=== PATIENT | female | born 1995 | race Caucasian/White ===

== ENCOUNTER 2025-08-14 08:07 | Outpatient (CLI) | payer BC, SELFPAY ==
--- NOTE | 2025-08-14 08:15 | CRLHL7_ITS ---
For Patients: As a result of the Cures Act, medical imaging exams and procedure reports are released immediately into your electronic medical record. You may view this report before your referring provider. If you have questions, please contact your health care provider. OB ULTRASOUND INDICATION: Dating and viability. TECHNIQUE: Real time grayscale imaging of the fetus was performed. Transvaginal. Transvaginal imaging performed to better demonstrate the endometrium and ovaries. LMP: 06/15/2025. BRUNO by LMP: 03/22/2026. GA: 8 w, 4 d. Previous US: No. CRL: 2.1 cm. 8 w 5 d. BRUNO: 03/21/2026. FHR: 173 BPM. Gestational sac: 4.2 cm. Appears within normal limits. Yolk sac: 5.1 mm. Appears within normal limits. Right ovary: Within normal limits. 3.4 x 1.8 x 1.7 cm. Left ovary: Within normal limits. 4.6 x 1.7 x 2.6 cm. CL. IMPRESSION: Single living intrauterine measures 8 weeks 5 days with sonographic due date 03/21/2026. Noman Harding M.D. Diagnostic Radiologist [email or web address]/Dictated by: Noman Harding MD @ 08/14/2025 10:44:00 AM (Electronically Signed)
[2025-08-14 12:04] LABS: TSH With Reflex to FT4* 19.200 uIU/mL (0.270-4.200)
[2025-08-14 12:44] LABS: Free T4 Free Thyroxine* 0.88 ng/dL (0.70-1.85)
== END 2025-08-14 08:08 | disposition home or self-care (01) ==
LOC: US 08:08
PROVIDERS: PCP Student in an Organized Health Care Education/Training Program; Visit Provider Physician Assistant
DX: Z34.91 Encounter for supervision of normal pregnancy, unspecified, first trimester (principal); Z3A.08 8 weeks gestation of pregnancy
CPT/HCPCS: 36415; 76817; 83021; 84439; 84443; 86592; 86703; 86704; 86706; 86762; 86787; 86803; 86850; 86900; 86901; 87086; 87340; 87491; 87591

== ENCOUNTER 2025-09-12 13:22 | Outpatient (CLI) | payer BC, SELFPAY | END 2025-09-12 13:23 | disposition home or self-care (01) | LOC: NFLDREF 13:23 | PROVIDERS: PCP Student in an Organized Health Care Education/Training Program; Visit Provider Registered Nurse | DX: E03.9 Hypothyroidism, unspecified (principal); Z34.91 Encounter for supervision of normal pregnancy, unspecified, first trimester | CPT/HCPCS: 84439; 84443 ==